=== PATIENT | female | born 1995 | race Caucasian/White ===

== ENCOUNTER 2016-07-30 11:55 | Emergency (ER) ==
[2016-07-30] MEDS ORDERED: ZOFRAN IV ONE (14:00)
[2016-07-30] MEDS ORDERED: NS 1,000 ML IV ONE (14:00)
[2016-07-30 14:15] LABS: MANUAL DIFF NEEDED? NO
[2016-07-30 14:18] LABS: BASO% 0.5 % (0.0-0.8); EOS# 0.06 X1000 (0.0-0.7); EOS% 1.1 % (0.0-10.0); HEMATOCRIT 44.9 % (37.0-47.0); HEMOGLOBIN 15.5 g/dL (12.0-16.0); IMM GRAN# 0.01 X1000 (0.0-0.04); IMM GRAN% 0.2 % (0.0-0.5); LYMPH# 1.59 X1000 (1.2-3.4); MCH 29.6 PG (27-31); MCHC 34.5 g/dL (33-37); MCV 85.9 FL (81-99); MONO% 10.6 % (1.7-9.3); MPV 10.1 FL (7.4-10.4); NEUT% 59.6 % (42.2-75.2); PLT 273 X1000 (130-400); RBC 5.23 XMIL (4.2-5.4)
--- NOTE | 2016-07-30 14:43 | PROVIDER DOCUMENTATION ---
HPI-General Adult <GianSudha Ifrah - Last Filed: 07/30/16 15:18> - General Source: patient - History of Present Illness -Gen Adult Nature of Presenting Problems: Pt is 21 y/o F presents to the ED with N/V/D. Pt states body aches. Pt states having F and chills. Pt states the symptoms have been present for three days. Pt states is unable to hold down liquids or solids. Location of Pain/Injury: reports: generalized Pain Radiation: reports: no radiation Quality of Pain: reports: aching Severity: reports: mild Onset/Duration: reports: 3 days ago Timing: reports: still present Context/Activities at Onset: reports: light activity Modifying Factors: improves with: nothing Associated Symptoms: reports: diarrhea, fever/chills, loss of appetite, muscle aches, nausea, vomiting. denies: anxiety, arm pain, back/neck pain, chest pain , constipation, cough, diaphoresis, dizziness, EENT symptoms, fatigue, genitourinary problems, headaches, heartburn, joint pain, malaise, sinus congestion/drainage, rash, seizure, shortness of breath, sensory/motor loss, pain with inspiration, swelling/mass in abdomen, syncope, weakness, trouble walking Similar Symptoms Previously?: Yes Recently seen or treated by another doctor?: No <Mary Hare - Last Filed: 07/30/16 15:29> - General Chief Complaint: N/V/D Stated Complaint: N/V/D Time Seen by Provider: 07/30/16 12:19 Allergies/Adverse Reactions: Patient Allergies Allergy/AdvReac Type Severity Reaction Status Date / Time latex Allergy Unknown Verified 11/02/15 17:44 Home Medications: Home Medication List Medication Instructions Recorded Confirmed Last Taken Type Hydrocodone/APAP 5 mg/325 mg 1 - 2 each PO Q3-4H PRN PRN #60 12/23/15 Unknown Rx [[facility]-5] tablet Ibuprofen [Motrin] 800 mg PO Q8H PRN PRN #30 tablet 12/23/15 Unknown Rx Iron Fum,Ps/FA/Vit B with C #9 1 each PO DAILY #90 capsule 12/23/15 Unknown Rx [Integra Plus Capsule] Sennosides/Docusate Sodium 1 each PO QHS #30 tablet 12/23/15 Unknown Rx [Pericolace] Ondansetron [Zofran] 4 mg PO Q6H PRN PRN #10 tablet 07/30/16 Unknown Rx Promethazine [Phenergan] 25 mg PO Q6H PRN PRN #20 tablet 07/30/16 Unknown Rx Review of Systems - Adult - REVIEW OF SYSTEMS - ADULT Constitutional: reports: chills, fever Eyes: denies: blurred vision, double vision Ears, Nose, Mouth & Throat: denies: ear pain, nose pain, throat pain Cardiovascular: denies: chest pain, heart murmur, irregular heart rate Respiratory: denies: cough, shortness of breath, wheezing Gastrointestinal: reports: diarrhea, nausea, poor appetite, vomiting. denies: abdominal pain Genitourinary: denies: dysuria, hematuria Musculoskeletal: reports: muscle aches. denies: bone pain, joint pain, neck pain Integumentary: denies: hives, itching Neurological: denies: dizziness/vertigo, headache/migraines Psychiatric: reports: no symptoms reported Endocrine: reports: no symptoms reported Hematologic/Lymphatic: reports: no symptoms reported Allergic/Immunologic: reports: no symptoms reported All Other Systems: Reviewed and Negative <Mary Hare - Last Filed: 07/30/16 15:29> Past History - Adult - PAST MEDICAL HISTORY-ADULT Review of Records: reports: Nursing Assessment Review, Medications Reviewed, Social history reviewed & non-contributory. Major Childhood Illnesses: reports: denies history Cardiovascular: reports: denies history Respiratory: reports: denies history Gastrointestinal: reports: denies history Obstetrical/Gynecological: reports: - spont/elective Genitourinary: reports: denies history Musculoskeletal: reports: denies history Neurological: reports: denies history Endocrine/Immune: reports: denies history Other Conditions: reports: denies history - IMMUNIZATION STATUS Childhood Immunizations: See Nurse Assessment Flu Vaccine: See Nurse Assessment - FAMILY HISTORY Family History: reviewed, not pertinent - SOCIAL HISTORY Smoking: quit less than 1 year, cigarettes Substance Use: denies Living Situation: family <Mary Hare - Last Filed: 07/30/16 15:29> Physical Exam-General - PHYSICAL EXAM-ADULT Initial Vital Signs Reviewed: Yes - CONSTITUTIONAL General Appearance: appears well, alert, no apparent distress - EYES Eyes: PERRL/EOMI, pink conjunctivae, fundi clear, no AV nicking - HEAD, EARS, NOSE, MOUTH & THROAT HENMT: normocephalic/atraumatic, moist mucous membranes, normal ENT inspection, TMs normal, pharynx normal - NECK Neck: non-tender, full range of motion, supple, normal inspection - RESPIRATORY Respiratory: chest non-tender, lungs clear, normal breath sounds, no pleuratic chest pain, no respiratory distress, no accessory muscle use - CARDIOVASCULAR Cardiovascular: normal peripheral pulses, regular rate, rhythm, no edema, no gallop, no JVD, no murmur - GASTROINTESTINAL (ABDOMEN) Abdominal Exam: normal bowel sounds, non tender, soft, no organomegaly, no pulsatile mass - LYMPHATIC Lymphatic: no adenopathy - MUSCULOSKELETAL Back Exam: normal inspection, no CVA tenderness, no vertebral tenderness Extremity: normal range of motion, non-tender, normal gait, normal inspection, no pedal edema, no calf tenderness, normal capillary refill, pelvis stable - SKIN Integumentary: normal color, normal turgor, warm/dry - NEUROLOGIC Neurologic: 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 tested, grossly normal, no motor/sensory deficits - PSYCHIATRIC Psych/Mental Status: normal mood/affect, normal thought content, normal thought process, oriented x 3 <Mary Hare - Last Filed: 07/30/16 15:29> Progress - PLAN OF CARE/RESULTS Progress/Plan/Lab Results: Laboratory Tests 07/30/16 07/30/16 07/30/16 13:30 14:05 14:05 WBC 5.68 RBC 5.23 Hgb 15.5 Hct 44.9 MCV 85.9 MCH 29.6 MCHC 34.5 RDW Std Deviation 13.1 Plt Count 273 MPV 10.1 Immature Gran % (Auto) 0.2 Neut % (Auto) 59.6 Lymph % (Auto) 28.0 Bladen % (Auto) 10.6 H Eos % (Auto) 1.1 Baso % (Auto) 0.5 Immature Gran # (Auto) 0.01 Neut # (Auto) 3.39 Lymph # (Auto) 1.59 Bladen # (Auto) 0.60 H Eos # (Auto) 0.06 Baso # (Auto) 0.03 Sodium 135 L Potassium 3.6 Chloride 101 Carbon Dioxide 23 L Anion Gap 11 BUN 9 Creatinine 0.7 Estimated GFR/1.73 m2 > 60 BUN/Creatinine Ratio 13 Glucose 98 Calculated Osmolality 269 Calcium 9.7 Total Bilirubin 1.10 H AST 15 ALT 13 Alkaline Phosphatase 113 H Total Protein 7.5 Albumin 4.6 Globulin 3.0 Albumin/Globulin Ratio 2.0 Urine Test NEGATIVE Orders Category Date Time Status CBC WITH DIFF [HEME] Stat Lab 07/30/16 14:05 Completed CMP [COMPREHENSIVE METABOLIC PANEL] [CHEM] Stat Lab 07/30/16 14:05 Completed TEST-URINE [PREG] Stat Lab 07/30/16 13:30 Completed 0.9% Sodium Chloride Inj [Ns] 1,000 ml Med 07/30/16 14:00 Discontinued IV 999 mls/hr Ondansetron [Zofran] Med 07/30/16 14:00 Discontinued 4 mg IV NOW ONE Last Vital Signs Temp 98.2 F 07/30/16 12:10 Pulse 80 07/30/16 12:10 Resp 18 07/30/16 12:10 BP 104/70 07/30/16 12:10 Pulse Ox 99 07/30/16 12:10 Allergies latex Allergy (Verified 11/02/15 17:44) Unknown Lab Tests 07/30/16 07/30/16 07/30/16 13:30 14:05 14:05 WBC 5.68 RBC 5.23 Hgb 15.5 Hct 44.9 MCV 85.9 MCH 29.6 MCHC 34.5 RDW Std Deviation 13.1 Plt Count 273 MPV 10.1 Immature Gran % (Auto) 0.2 Neut % (Auto) 59.6 Lymph % (Auto) 28.0 Bladen % (Auto) 10.6 H Eos % (Auto) 1.1 Baso % (Auto) 0.5 Immature Gran # (Auto) 0.01 Neut # (Auto) 3.39 Lymph # (Auto) 1.59 Bladen # (Auto) 0.60 H Eos # (Auto) 0.06 Baso # (Auto) 0.03 Sodium 135 L Potassium 3.6 Chloride 101 Carbon Dioxide 23 L Anion Gap 11 BUN 9 Creatinine 0.7 Estimated GFR/1.73 m2 > 60 BUN/Creatinine Ratio 13 Glucose 98 Calculated Osmolality 269 Calcium 9.7 Total Bilirubin 1.10 H AST 15 ALT 13 Alkaline Phosphatase 113 H Total Protein 7.5 Albumin 4.6 Globulin 3.0 Albumin/Globulin Ratio 2.0 Urine Test NEGATIVE Vital Signs - 24 hr 07/30/16 12:10 Temperature 98.2 F Pulse Rate 80 Respiratory 18 Rate Blood Pressure 104/70 O2 Sat by Pulse 99 Oximetry <Sudha Springer - Last Filed: 07/30/16 15:18> - PLAN OF CARE/RESULTS Progress/Plan/Lab Results: Laboratory Tests 07/30/16 14:05 WBC 5.68 RBC 5.23 Hgb 15.5 Hct 44.9 MCV 85.9 MCH 29.6 MCHC 34.5 RDW Std Deviation 13.1 Plt Count 273 MPV 10.1 Immature Gran % (Auto) 0.2 Neut % (Auto) 59.6 Lymph % (Auto) 28.0 Bladen % (Auto) 10.6 H Eos % (Auto) 1.1 Baso % (Auto) 0.5 Immature Gran # (Auto) 0.01 Neut # (Auto) 3.39 Lymph # (Auto) 1.59 Bladen # (Auto) 0.60 H Eos # (Auto) 0.06 Baso # (Auto) 0.03 Orders Category Date Time Status CBC WITH DIFF [HEME] Stat Lab 07/30/16 14:05 Completed CMP [COMPREHENSIVE METABOLIC PANEL] [CHEM] Stat Lab 07/30/16 14:05 Received TEST-URINE [PREG] Stat Lab 07/30/16 14:40 Uncollected 0.9% Sodium Chloride Inj [Ns] 1,000 ml Med 07/30/16 14:00 Active IV 999 mls/hr Ondansetron [Zofran] Med 07/30/16 14:00 Discontinued 4 mg IV NOW ONE Vital Signs - 24 hr 07/30/16 12:10 Temperature 98.2 F Pulse Rate 80 Respiratory 18 Rate Blood Pressure 104/70 O2 Sat by Pulse 99 Oximetry Laboratory Tests 07/30/16 07/30/16 07/30/16 13:30 14:05 14:05 WBC 5.68 RBC 5.23 Hgb 15.5 Hct 44.9 MCV 85.9 MCH 29.6 MCHC 34.5 RDW Std Deviation 13.1 Plt Count 273 MPV 10.1 Immature Gran % (Auto) 0.2 Neut % (Auto) 59.6 Lymph % (Auto) 28.0 Bladen % (Auto) 10.6 H Eos % (Auto) 1.1 Baso % (Auto) 0.5 Immature Gran # (Auto) 0.01 Neut # (Auto) 3.39 Lymph # (Auto) 1.59 Bladen # (Auto) 0.60 H Eos # (Auto) 0.06 Baso # (Auto) 0.03 Sodium 135 L Potassium 3.6 Chloride 101 Carbon Dioxide 23 L Anion Gap 11 BUN 9 Creatinine 0.7 Estimated GFR/1.73 m2 > 60 BUN/Creatinine Ratio 13 Glucose 98 Calculated Osmolality 269 Calcium 9.7 Total Bilirubin 1.10 H AST 15 ALT 13 Alkaline Phosphatase 113 H Total Protein 7.5 Albumin 4.6 Globulin 3.0 Albumin/Globulin Ratio 2.0 Urine Test NEGATIVE <Mary Hare - Last Filed: 07/30/16 15:29> Departure - Departure Time of Disposition Order: 15:17 Certified Medical Emergency: Emergent <Sudha Springer - Last Filed: 07/30/16 15:18> <Mary Hare - Last Filed: 07/30/16 15:29> - Departure DIAGNOSIS: Nausea & vomiting Qualifiers: Vomiting type: unspecified Vomiting Intractability: unspecified Qualified Code( s): R11.2 - Nausea with vomiting, unspecified Diarrhea Qualifiers: Diarrhea type: unspecified type Qualified Code(s): R19.7 - Diarrhea, unspecified Disposition: HOME 01 Condition: Stable Additional Instructions: ED Follow Up Instructions: You have been treated by a care provider in the Emergency Department. These instructions are being provided to you so you can have an understanding of how to care for yourself upon discharge. Upon discharge from the Emergency Department, you are responsible for making arrangements for follow-up care by a physician of your choice. Take all prescribed medications as directed. Return to the Emergency Department immediately for any new or worsening symptoms. You may call the Physician Referral phone number at [phone] to obtain a list of Physicians who are taking new patients. Prescriptions: Promethazine [Phenergan] 25 mg PO Q6H PRN PRN #20 tablet PRN Reason: Nausea And Vomiting Ondansetron [Zofran] 4 mg PO Q6H PRN PRN #10 tablet PRN Reason: Nausea Referrals: None,PCP [Primary Care Provider] - Forms: Return to School/Parent Work Instructions: Ondansetron oral dissolving tablet, Nausea and Vomiting, Easy-to- Read, Promethazine tablets, Diarrhea, [id number] Attestation - Scribe Verification/Attestation Scribe:: Mary Hare Acting as Scribe for:: Sudha Springer Scribe documention review:: This chart was documented by a scribe and accurately reflects the service the provider performed and the decisions made by the provider. <Mary Hare - Last Filed: 07/30/16 15:29> Physician Attestation
[2016-07-30 14:56] LABS: AGAP 11; ALBUMIN 4.6 g/dL (3.5-5.0); ALKALINE PHOSPHATASE 113 U/L (32-104); BUN 9 mg/dL (8-22); CALCIUM 9.7 mg/dL (8.8-10.2); CHLORIDE 101 mmol/L (98-107); COSMO 269; GOT 15 U/L (10-30); GPT 13 U/L (10-36); POTASSIUM 3.6 mmol/L (3.5-5.1); SODIUM 135 mmol/L (136-145); TCO2 23 mmol/L (25-35); TOTAL PROTEIN 7.5 g/dL (6.3-8.3)
[2016-07-30 15:54] VITALS: BP 118/68
== END 2016-07-30 15:52 | disposition home or self-care (01) ==
LOC: P.ED 11:55
DX: R11.2 Nausea with vomiting, unspecified (principal); R19.7 Diarrhea, unspecified; M79.1 Myalgia; R50.9 Fever, unspecified; Z87.891 Personal history of nicotine dependence
CPT/HCPCS: 80053; 81025; 85025; 96361; 96374; J2405; J7030